=== PATIENT | female | born 1990 | race American Indian/Alaskan Native ===

== ENCOUNTER 2021-06-01 18:03 | Inpatient (IN) | payer MEDICAID, OTHER ==
[2021-06-01] MEDS ORDERED: LOPERAMIDE 2 MG CAP PO PRN (18:56)
[2021-06-01] MEDS ORDERED: miSOPROStol 200 MCG TAB PR PRN (18:56)
[2021-06-01] MEDS ORDERED: fentaNYL 100 MCG/2 ML INJ IV PRN (18:56)
[2021-06-01] MEDS ORDERED: OXYTOCIN 10 UNIT/1 ML INJ IM PRN (18:56)
[2021-06-01] MEDS ORDERED: METHYLERGONOVINE MALEATE 0.2 MG/ML VIAL IM PRN (18:56)
[2021-06-01] MEDS ORDERED: ONDANSETRON 4 MG/2 ML INJ IV PRN (18:56)
[2021-06-01] MEDS ORDERED: ePHEDrine SULFATE 50 MG/1 ML INJ IV PRN ×2 (18:56→19:48)
[2021-06-01] MEDS ORDERED: LIDOCAINE (2%) 20 MG/1 ML VIAL 20 ML MDV INFILTRATI ONE (18:56)
[2021-06-01] MEDS ORDERED: MINERAL OIL 30 ML ORAL LIQD PO PRN (18:56)
[2021-06-01] MEDS ORDERED: BUTORPHANOL 2 MG/1 ML INJ IV PRN (18:56)
[2021-06-01] MEDS ORDERED: TERBUTALINE 1 MG/1 ML INJ SUB-Q PRN (18:56)
[2021-06-01] MEDS ORDERED: PROMETHAZINE 25 MG TAB PO PRN (18:56)
[2021-06-01] MEDS ORDERED: CARBOPROST TROMETHAMINE 250 MCG/1 ML INJ IM PRN (18:56)
[2021-06-01] MEDS ORDERED: ACETAMINOPHEN 500 MG TAB PO PRN (18:56)
[2021-06-01] MEDS ORDERED: NALOXONE 0.4 MG/1 ML INJ IV PRN (18:56)
--- NOTE | 2021-06-01 18:56 | History and Physical Report ---
History of Present Illness Date of examination: 06/01/21 Date of admission: 06/01/2021 Chief complaint: I have been having contractions since 05/31/2021 and today they are getting stronger. History of present illness: EDC Confirmation: 06/10/2021 Gestational Age: 29 1/7 weeks Past History : 2 Term Births: 1 Premature Births: 0 Living Children: 1 Para: 1 Mult. Births: 0 Prev : 0 Prev. attempt? 0 Aborta: 0 Elect. Ab: 0 Spont. Ab: 0 Ectopics: 0 # 1 Delivery date: 07/05/2015 Weeks Gestation: 39 labor: no Delivery type: Vaginal Hours of labor: 3 hrs Anesthesia type: epidural Delivery location: [facility] Sex: male weight: 7.44 Comments: none Past Medical History: Reviewed history from 06/20/2019 and no changes required: Headaches(Migraines) Past Surgical History: Reviewed history from 06/20/2019 and no changes required: negative Past Medical History Anesthesia Complications: negative Anemia: negative Autoimmune Disorder: negative Bleeding Disorder: negative Blood Transfusions: negative Breast Disease: negative Diabetes: negative Heart Disease: negative Hypertension: negative Hepatitis/Liver Disease: negative Kidney Disease/UTI: negative Neurologic/Epilepsy/Migraines: negative Phlebitis/Varicosities: negative Psychiatric: negative Pulmonary Disease/Asthma: negative Thyroid Disease: negative Hospitalizations: negative Surgery (Non-communication center operator): negative Abnormal PAP: positive FREDERIC Exposure: negative Infertility: negative Uterine Anomaly: negative Uterine Surgery (not C/S): negative Other Gynecologic Problems: negative Social Hx: Patient is [place] Smoking History: Patient has never smoked. Infection History Hx of STD: none HIV Risk Eval: no Hepatitis B Risk Eval: low risk Personal hx. of genital herpes: yes Partner hx. of genital herpes: no Rash, Viral, or Febrile illness since last LMP? no Varicella/Chicken Pox Status: Previous Disease TB Risk: no Genetic History Congenital Heart Defect: Mom: no Dad: no Sharon Disease: Mom: no Dad: no Thalassemia Mom: no Dad: no Neural Tube Defect Mom: no Dad: no Down's Syndrome Mom: no Dad: no Kyle-Sachs Mom: no Dad: no Sickle Cell Disease/Trait Mom: no Dad: no Hemophilia Mom: no Dad: no Muscular Dystrophy Mom: no Dad: no Cystic Fibrosis Mom: no Dad: no [place] Chorea Mom: no Dad: no Mental Retardation Mom: no Dad: no Fragile X Mom: no Dad: no Other Genetic/Chromosomal Disorder Mom: no Dad: no Child w/other defect Mom: no Dad: no Enviromental Exposures Xray Exposure: no Medication, drug, or alcohol use since LMP: no Chemical/Other Exposure: no Exposure to Cat Liter: no Hx of Parvovirus (Fifth Disease): no Occupational Exposure to Children: none Active Medications (reviewed today): VALTREX 500 MG ORAL TABLET (VALACYCLOVIR HCL) one by mouth twice a day for 3 days Current Allergies (reviewed today): No known allergies Past History Past Medical History: migraines Past Surgical History: no surgical history Family/Genetic History: none Social history: no significant social history - Obstetrical History Expected Date of Delivery: 06/10/21 Actual Gestation: 38 Week(s) 5 Day(s) : 2 Para: 1 Hx # Term Pregnancies: 1 Number of Pregnancies: 0 Spontaneous Abortions: 0 Induced : 0 Number of Living Children: 1 Medications and Allergies Allergies Allergy/AdvReac Type Severity Reaction Status Date / Time No Known Allergies Allergy Verified 07/05/15 11:31 Home Medications Medication Instructions Recorded Confirmed Last Taken Type Lidocain2.5%/Prilocai2.5% [Emla] 1 applic TP ONCE #1 tube 07/05/15 Unknown Rx Review of Systems All systems: negative - Vital Signs Vital signs: Vital Signs Pulse Pulse Ox 83 100 06/01/21 18:34 06/01/21 18:34 Temp Pulse Resp BP Pulse Ox 98.2 F 95 H 18 108/61 99 06/01/21 18:48 06/01/21 18:49 06/01/21 18:48 06/01/21 18:48 06/01/21 18:49 - Physical Exam Breasts: Positive: deferred Cardiovascular: Regular rate Lungs: Positive: Normal air movement Abdomen: Positive: normal appearance, soft Genitourinary (Female): Positive: normal external genitalia, normal perenium, other (No HSV 2 lesions seen on exam) Vulva: both: normal Vagina: Positive: normal moisture Uterus: Positive: normal size (For gestation of 38.5 wks.) Extremities: Positive: normal - Obstetrical FHR: category 1 Uterine Contraction Monitor Mode: External Cervical Dilatation: 5 Cervical Effacement Percentage: 70 station: -2 Uterine Contraction Pattern: Irregular Uterine Tone Measurement Phase: Resting Uterine Contraction Intensity: Moderate Results Result Diagrams: 06/01/21 19:09 All other labs normal. GBS NEGATIVE A-, antibody screen negative Rubella IMMUNE Hep C negative Hep B negative HIV negative Syph IGG non-reactive Assessment and Plan A: 30 y.o. @ 38.5 wks in labor. Cervical exam /-2. Intact membranes. - Patient Problems (1) with 38 completed weeks gestation Current Visit: Yes Status: Acute Plan to address problem: Admit to labor and delivery. Start IV. Draw admission labs. Initiate IV bolus for epidural placement. Anticipate . (2) HSV-2 (herpes simplex virus 2) infection Current Visit: Yes Status: Acute Plan to address problem: No lesions seen on admission. Will continue to monitor.
[2021-06-01] MEDS ORDERED: OXYTOCIN DRIP 30 UNITS/500 ML BAG IV SCH ×2 (19:00)
[2021-06-01 19:27] LABS: Hematocrit 37.1 % (30.3-42.9); Hemoglobin 12.7 gm/dl (10.1-14.3); Mean Corpuscular HGB Conc 34 % (30-34); Mean Corpuscular Volume 93 fl (79-97); Platelet Count 206 K/mm3 (140-440); Red Blood Count 3.99 M/mm3 (3.65-5.03); Red Cell Distribution Width 14.6 % (13.2-15.2)
[2021-06-01] MEDS: LACTATED RINGERS 1,000 ML IV SCH ×3 (19:45→21:10)
[2021-06-01] MEDS ORDERED: NALOXONE 2 MG/2 ML INJ IV PRN (19:48)
--- NOTE | 2021-06-01 19:48 | Anesthesia Consultation ---
Anesthesia Consult and Med Hx Date of service: 06/01/21 - Airway Anesthetic Teeth Evaluation: Poor ROM Head & Neck: Adequate Mental/Hyoid Distance: Adequate Mallampati Class: Class II Intubation Access Assessment: Good - Pulmonary Exam CTA: Yes - Cardiac Exam Cardiac Exam: RRR - Pre-Operative Health Status ASA Pre-Surgery Classification: ASA2 Proposed Anesthetic Plan: Epidural - Pulmonary Hx Smoking: No Hx Asthma: No Hx Respiratory Symptoms: No SOB: No COPD: No Home Oxygen Therapy: No Hx Pneumonia: No Hx Sleep Apnea: No - Cardiovascular System Hx Hypertension: No Hx Coronary Artery Disease: No Hx Heart Attack/AMI: No Hx Angina: No Hx Percutaneous Transluminal Coronary Angioplasty (PTCA): No Hx Cardia Arrhythmia: No Hx Pacemaker: No Hx Internal Defibrillator: No Hx Valvular Heart Disease: No Hx Heart Murmur: No Hx Peripheral Vascular Disease: No - Central Nervous System Hx Neuromuscular Disorder: No Hx Seizures: No CVA: No Hx Back Pain: Yes Hx Psychiatric Problems: No - Gastrointestinal Hx Ulcer: No Hx Gastroesophageal Reflux Disease: Yes - Endocrine Hx Renal Disease: No Hx End Stage Renal Disease: No Hx Cirrhosis: No Hx Liver Disease: No Hx Insulin Dependent Diabetes: No Hx Non-Insulin Dependent Diabetes: No Hx Thyroid Disease: No Hx Hypothyroidism: No Hx Hyperthyroidism: No - Hematic Hx Anemia: No Hx Sickle Cell Disease: No - Other Systems Hx Alcohol Use: No Hx Substance Use: No Hx Cancer: No Hx Obesity: No
[2021-06-01] MEDS ORDERED: fentaNYL-BUPIV 2 MCG/ML-0.125% 200 MCG/100 ML BAG EPIDURAL SCH (20:00)
--- NOTE | 2021-06-01 20:59 | Progress Note ---
Labor Epidural - Labor Epidural Start Time: 20:40 Stop Time: 20:52 Performed by:: HARMONY TOSCANO Procedure: Patient is requesting a laboring epidural for laboring pain. Patient IDed, H&P reviewed, all questions and concerns were answered, and consent was signed. Timeout was performed at bedside. Patient in sitting position. Sterile prep and drape was performed. [3] ml of 1% lidocaine skin wheal at L[3]- L [4]. 18- gauge Rylan epidural needle was advanced to loss of resistance with saline technique 4cm. Negative CSF negative blood. Epidural catheter advanced to [10] centimeters. [NEGATIVE] Aspiration [NEGATIVE] test dose. Sterile dressing applied. Patient tolerated procedure.
[2021-06-01] MEDS ORDERED: valACYclovir 500 MG TAB PO SCH (21:00)
--- NOTE | 2021-06-01 22:19 | Progress Note ---
Assessment and Plan A: 30 y.o. @ 38.5 wks in active labor. Cervical exam: /0. Pronlonged deceleration noted. Now category 1 monitor strip. P: Continue with expectant labor management. Anticipate . - Patient Problems (1) with 38 completed weeks gestation Current Visit: Yes Status: Acute (2) HSV-2 (herpes simplex virus 2) infection Current Visit: Yes Status: Acute Subjective - Subjective Date of service: 06/01/21 (Pt comfortable with epidural) Principal diagnosis: IUP @ 38.5, active labor Patient reports: other (Somne vaginal pressure) Objective - Vital Signs Vital Signs: Vital Signs - 12hr 06/01/21 06/01/21 06/01/21 18:34 18:35 18:39 Temperature Pulse Rate 83 80 98 H Respiratory Rate Blood Pressure 108/61 Blood Pressure [Right] O2 Sat by Pulse 100 100 Oximetry 06/01/21 06/01/21 06/01/21 18:44 18:48 18:49 Temperature 98.2 F Pulse Rate 102 H 96 H 95 H Respiratory 18 Rate Blood Pressure Blood Pressure 108/61 [Right] O2 Sat by Pulse 99 99 99 Oximetry 06/01/21 06/01/21 06/01/21 18:54 18:59 19:04 Temperature Pulse Rate 98 H 100 H 96 H Respiratory Rate Blood Pressure Blood Pressure [Right] O2 Sat by Pulse 100 99 99 Oximetry 06/01/21 06/01/21 06/01/21 19:09 19:14 19:42 Temperature Pulse Rate 88 94 H 87 Respiratory Rate Blood Pressure 114/66 Blood Pressure [Right] O2 Sat by Pulse 100 99 89 Oximetry 06/01/21 06/01/21 06/01/21 19:47 19:52 19:57 Temperature Pulse Rate 93 H 91 H 93 H Respiratory Rate Blood Pressure Blood Pressure [Right] O2 Sat by Pulse 100 100 100 Oximetry 06/01/21 06/01/21 06/01/21 20:02 20:07 20:12 Temperature 98.3 F Pulse Rate 95 H 88 94 H Respiratory 18 Rate Blood Pressure Blood Pressure [Right] O2 Sat by Pulse 99 100 100 Oximetry 06/01/21 06/01/21 06/01/21 20:17 20:29 20:34 Temperature Pulse Rate 93 H 87 88 Respiratory Rate Blood Pressure Blood Pressure [Right] O2 Sat by Pulse 100 99 100 Oximetry 06/01/21 06/01/21 06/01/21 20:38 20:39 20:44 Temperature Pulse Rate 96 H 94 H 95 H Respiratory Rate Blood Pressure Blood Pressure [Right] O2 Sat by Pulse 91 100 100 Oximetry 06/01/21 06/01/21 06/01/21 20:49 20:51 20:53 Temperature Pulse Rate 100 H 89 76 Respiratory Rate Blood Pressure 102/57 102/57 Blood Pressure [Right] O2 Sat by Pulse 99 Oximetry 06/01/21 06/01/21 06/01/21 20:54 20:55 20:57 Temperature Pulse Rate 77 72 88 Respiratory Rate Blood Pressure 106/61 104/65 Blood Pressure [Right] O2 Sat by Pulse 99 Oximetry 06/01/21 06/01/21 06/01/21 20:59 21:01 21:03 Temperature Pulse Rate 76 83 83 Respiratory Rate Blood Pressure 109/62 108/64 104/61 Blood Pressure [Right] O2 Sat by Pulse 99 Oximetry 06/01/21 06/01/21 06/01/21 21:04 21:05 21:07 Temperature Pulse Rate 86 85 82 Respiratory Rate Blood Pressure 109/69 116/67 Blood Pressure [Right] O2 Sat by Pulse 99 Oximetry 06/01/21 06/01/21 06/01/21 21:09 21:11 21:14 Temperature Pulse Rate 86 81 82 Respiratory Rate Blood Pressure 112/70 107/59 Blood Pressure [Right] O2 Sat by Pulse 99 98 Oximetry 06/01/21 06/01/21 06/01/21 21:19 21:23 21:24 Temperature Pulse Rate 90 85 85 Respiratory Rate Blood Pressure 106/62 Blood Pressure [Right] O2 Sat by Pulse 99 99 Oximetry 06/01/21 06/01/21 06/01/21 21:29 21:32 21:34 Temperature Pulse Rate 85 78 77 Respiratory Rate Blood Pressure 109/56 Blood Pressure [Right] O2 Sat by Pulse 99 98 Oximetry 06/01/21 06/01/21 06/01/21 21:39 21:44 21:49 Temperature Pulse Rate 94 H 82 73 Respiratory Rate Blood Pressure Blood Pressure [Right] O2 Sat by Pulse 100 99 100 Oximetry 06/01/21 06/01/21 06/01/21 21:54 22:02 22:08 Temperature Pulse Rate 105 H 96 H 74 Respiratory Rate Blood Pressure 106/66 Blood Pressure [Right] O2 Sat by Pulse 99 100 Oximetry - Exam Narrative Exam: Was called by RN d/t a prolonged deceleration that had been going on for about 6 minutes. She was repositioned on her hands and knees, Pitocin was turned off, and O2 via face mask applied. Upon entering the room, the FHR had returned to baseline and was category 1. Cervical exam: 890/0. Explained to patient that the deceleration could have been d/t rapid descent of her baby's head. She was previously -2 station. We will continue to monitor her progress in labor and her baby's tolerance to labor. Pt agrees to this plan and verbalized understanding. Breasts: deferred Cardiovascular: Regular rate Lungs: Normal air movement Abdomen: Present: normal appearance, soft Vulva: both: normal FHR: category 2 (prolonged deceleration noted into the 90's.) Uterine Contraction Monitor Mode: External Cervical Dilatation: 8 Cervical Effacement Percentage: 90 station: 0 Uterine Contraction Pattern: Regular Uterine Tone Measurement Phase: Resting Uterine Contraction Intensity: Moderate Extremities: normal - Labs Labs: Laboratory Results - last 24 hr 06/01/21 06/01/21 06/01/21 19:09 19:09 19:09 WBC 6.6 RBC 3.99 Hgb 12.7 Hct 37.1 MCV 93 MCH 32 MCHC 34 RDW 14.6 Plt Count 206 Syphilis IgG Antibody Nonreactive Blood Type A NEGATIVE Antibody Screen Positive Antibody Identification Anti-D (Passively Aquired)
[2021-06-02] MEDS ORDERED: ACETAMINOPHEN 325 MG TAB PO PRN (00:56)
[2021-06-02] MEDS ORDERED: miSOPROStol 100 MCG TAB PR PRN (00:56)
[2021-06-02] MEDS ORDERED: ONDANSETRON 4 MG/2 ML INJ IV PRN (00:56)
[2021-06-02] MEDS ORDERED: WITCH HAZEL/ GLYCERIN PAD TP PRN (00:56)
[2021-06-02] MEDS ORDERED: LANOLIN/ZINC/DIMETHICONE (LANSINOH) 7 GM TP PRN ×2 (00:56)
[2021-06-02] MEDS ORDERED: MAGNESIUM HYDROXIDE (MOM) ORAL LIQD UDC PO PRN (00:56)
[2021-06-02] MEDS ORDERED: BENZOCAINE/MENTHOL 20/0.5% TOP SPRAY 56 GM TP PRN (00:56)
[2021-06-02] MEDS ORDERED: diphenhydrAMINE 25 MG CAP PO PRN (00:56)
[2021-06-02] MEDS ORDERED: PROMETHAZINE 25 MG TAB PO PRN (00:56)
[2021-06-02] MEDS ORDERED: oxyCODONE /ACETAMINOPHEN 5-325MG TAB PO PRN (00:56)
[2021-06-02] MEDS ORDERED: OXYTOCIN DRIP 30 UNITS/500 ML BAG IV SCH (01:00)
--- NOTE | 2021-06-02 01:06 | Procedure Note ---
OB Delivery Note - Delivery Date of Delivery: 06/01/21 (Pt delivered on 06/01 @ 2351 PM) Air Brake Rigger: MIKE CAMPOS Estimated blood loss: 200cc - Vaginal Delivery presentation: vertex Delivery position: OA Intrapartum events: none Delivery induction: none Delivery monitor: external FHT, external uterine Delivery placenta: spontaneous Delivery cord: 3 umbilical vessels Episiotomy: none Delivery laceration: 2nd degree Delivery repair: vicryl Anesthesia: epidural Delivery comments: of viable female . to mother's abdomen for skin to skin. Cord cut and clamped by FOC after cessation of pulse. Spontaneous delivery of placenta, intact, complete, 3 vessels noted. Perineum and vagina inspected, 2nd degree laceration noted. Repaired with 3-0 Vicryl. Fundus firm, minimal bleeding noted. Apgars 8,9. Infant weight 7-11. EBL 200ml. Infant and mother left in stable condition in care of RN. Instruments and sponges counted X2 with RN and correct X2.
[2021-06-02] MEDS: IBUPROFEN 800 MG TAB PO SCH ×4 (03:15→22:25)
[2021-06-02] MEDS: DOCUSATE SODIUM 100 MG CAP PO SCH ×2 (09:49→22:25)
[2021-06-02] MEDS ORDERED: PRENATAL VIT27-FE FUMARATE-FOLIC ACID VIT TAB PO SCH (10:00)
--- NOTE | 2021-06-02 11:50 | Progress Note ---
Assessment and Plan Pt sitting in bed with supportive family members at bedside holding infant. Pt reports well exclusively, eating, ambulating, voiding, and had first bowel movement since delivery without complaints. POC d/w pt for possible discharge tomorrow. Pt reports desires for paraguard IUD placement in office for PP BC. All questions and concerns addressed. - Patient Problems (1) Rh negative, delivered, current hospitalization Current Visit: Yes Status: Acute (2) Spontaneous vaginal delivery Current Visit: Yes Status: Acute Subjective - Subjective Date of service: 06/02/21 Principal diagnosis: s/p Patient reports: appetite normal, voiding normally, pain well controlled, flatus, bowel movement, ambulating normally [place]: doing well, nursing well Objective - Vital Signs Latest vital signs: Vital Signs Temp Pulse Resp BP BP BP Pulse Ox 06/02/21 08:35 98.0 F 82 18 98/63 99 06/02/21 06:55 16 06/02/21 03:15 18 06/02/21 03:06 98.3 F 78 101/55 06/02/21 01:48 80 99 06/02/21 01:46 76 115/65 06/02/21 01:43 85 99 06/02/21 01:38 84 99 06/02/21 01:33 77 100 06/02/21 01:31 80 107/61 06/02/21 01:28 81 98 06/02/21 01:23 81 99 06/02/21 01:18 84 98 06/02/21 01:16 77 104/59 93 06/02/21 01:13 78 99 06/02/21 01:08 74 97 06/02/21 01:03 80 98 06/02/21 01:02 78 100/55 06/02/21 00:58 74 100 06/02/21 00:53 82 97 06/02/21 00:51 85 93 06/02/21 00:48 79 98 06/02/21 00:47 71 106/57 06/02/21 00:43 79 98 06/02/21 00:38 85 99 06/02/21 00:33 79 99 06/02/21 00:32 80 104/59 06/02/21 00:28 84 99 06/02/21 00:23 93 H 99 06/02/21 00:18 80 98 06/02/21 00:17 77 112/62 06/02/21 00:13 82 99 06/02/21 00:08 88 98 06/02/21 00:03 78 99 06/01/21 23:58 84 98 06/01/21 23:53 94 H 98 06/01/21 23:48 94 H 98 06/01/21 23:43 103 H 87 06/01/21 23:38 86 99 06/01/21 23:35 29 L 90 06/01/21 23:33 72 106/65 93 06/01/21 23:29 82 87 06/01/21 23:28 74 100 06/01/21 23:23 78 100 06/01/21 23:18 72 100 06/01/21 23:13 78 98 06/01/21 23:08 72 99 06/01/21 23:03 72 97 06/01/21 23:02 69 101/55 06/01/21 23:00 83 94 06/01/21 22:58 70 99 06/01/21 22:53 72 92 06/01/21 22:51 75 88 06/01/21 22:48 80 99 06/01/21 22:43 76 99 06/01/21 22:38 85 100 06/01/21 22:33 78 105/62 100 06/01/21 22:28 84 99 06/01/21 22:23 78 100 06/01/21 22:18 82 99 06/01/21 22:13 83 99 06/01/21 22:08 74 100 06/01/21 22:02 96 H 106/66 06/01/21 21:54 105 H 99 06/01/21 21:49 73 100 06/01/21 21:44 82 99 06/01/21 21:39 94 H 100 06/01/21 21:34 77 98 06/01/21 21:32 78 109/56 06/01/21 21:29 85 99 06/01/21 21:24 85 99 06/01/21 21:23 85 106/62 06/01/21 21:19 90 99 06/01/21 21:14 82 98 06/01/21 21:11 81 107/59 06/01/21 21:09 86 112/70 99 06/01/21 21:07 82 116/67 06/01/21 21:05 85 109/69 06/01/21 21:04 86 99 06/01/21 21:03 83 104/61 06/01/21 21:01 83 108/64 06/01/21 20:59 76 109/62 99 06/01/21 20:57 88 104/65 06/01/21 20:55 72 106/61 06/01/21 20:54 77 99 06/01/21 20:53 76 102/57 06/01/21 20:51 89 102/57 06/01/21 20:49 100 H 99 06/01/21 20:44 95 H 100 06/01/21 20:39 94 H 100 06/01/21 20:38 96 H 91 06/01/21 20:34 88 100 06/01/21 20:29 87 99 06/01/21 20:17 93 H 100 06/01/21 20:12 94 H 100 06/01/21 20:07 88 100 06/01/21 20:02 98.3 F 95 H 18 99 06/01/21 19:57 93 H 100 06/01/21 19:52 91 H 100 06/01/21 19:47 93 H 100 06/01/21 19:42 87 114/66 89 06/01/21 19:14 94 H 99 06/01/21 19:09 88 100 06/01/21 19:04 96 H 99 06/01/21 18:59 100 H 99 06/01/21 18:54 98 H 100 06/01/21 18:49 95 H 99 06/01/21 18:48 98.2 F 96 H 18 108/61 99 06/01/21 18:44 102 H 99 06/01/21 18:39 98 H 100 06/01/21 18:35 80 108/61 06/01/21 18:34 83 100 Intake and Output 06/01/21 06/02/21 06/02/21 23:59 07:59 15:59 Intake Total 1701.067 Output Total 666 733 300 Balance 1035.069 -733 -300 Intake: IV 1701.067 Lactated Ringers 1,000 ml 1700 @ 125 mls/hr IV DIRECT DONNA Rx#:[id number] PITOCin/NS 30 UNIT/500ML 1.067 30 units In 500 ml @ 4 mls/hr IV TITR DONNA Rx#: [id number] Output: Urine 666 733 300 Indwelling Catheter 666 333 Self-Catheterization 400 Void 300 Other: Total, Output Amount 333 400 300 # Voids Void 1 Weight 149 lb Estimated Blood Loss 200 - Exam Breasts: Present: normal Cardiovascular: Present: Regular rate Lungs: Present: Normal air movement Abdomen: Present: normal appearance, soft Vulva: both: normal Uterus: Present: normal, firm Extremities: Present: normal
[2021-06-02 13:04] LABS: Hematocrit 37.2 % (30.3-42.9); Hemoglobin 12.7 gm/dl (10.1-14.3)
--- NOTE | 2021-06-02 15:04 | Post Anesthesia Evaluation ---
- Post Anesthesia Evaluation Patient Participated: Yes Airway Patent: Yes Stable Respiratory Function: Yes Nausea/Vomiting: No Temp > 96.8F: Yes Pain Manageable: Yes Adequeate Hydration: Yes Anesthesia Complications: No Block Receding Appropriately: Yes Patient on Ventilator: No
[2021-06-03] MEDS ORDERED: MEASLES, MUMPS & RUBELLA 12,500 UNIT/0.5 ML VACCINE SUB-Q ONE (06:00)
[2021-06-03] MEDS: IBUPROFEN 800 MG TAB PO SCH (06:35)
--- NOTE | 2021-06-03 07:25 | Discharge Summary ---
Providers - Providers Date of Admission: 06/01/21 18:56 Date of discharge: 06/03/21 (pt desires d/c) Attending physician: CRIS JUARES 06/02/21 00:57 Consult to Chemical Process Analyst [CONS] Routine Reason For Exam: assistance with , SNS Primary care physician: CRIS JUARES Hospitalization Reason for admission: active labor Delivery: Episiotomy: none Laceration: none Incision: normal Other procedures: none complications: none Discharge diagnosis: IUP at term delivered baby: female Hospital course: uncomplicated vaginal delivery Pt awake caring for NB. Pt c/o back pain. Relieving factors given Encouraged to use Motrin. VSS FF below umb Lochia scant Perineum intact. H&H stable No s/sx of anemia. Doing well s/p vag delivery. P: d/c today with instructions RTO 4 w PP care. Condition at discharge: Good Disposition: DC-01 TO HOME OR SELFCARE - Discharge Diagnoses (1) Normal spontaneous vaginal delivery Status: Acute Comment: rto 4 weeks PP care Plan - Discharge Medications Prescriptions: Ibuprofen [Motrin] 800 mg PO Q8HR PRN #30 tablet PRN Reason: Pain, Moderate (4-6) - Provider Discharge Summary Activity: routine, no sex for 6 weeks, no heavy lifting 4 weeks, no strenuous exercise Diet: routine Instructions: routine Additional instructions: [] Smoking cessation referral if applicable(refer to patient education folder for contact #) [] Refer to [facility]'s [facility] Booklet Call your doctor immediately for: * Fever > 100.5 * Heavy vaginal bleeding ( >1 pad per hour) * Severe persistent headache * Shortness of breath * Reddened, hot, painful area to leg or breast * Drainage or odor from incision. * Keep incision clean and dry at all times and follow doctor's instructions regarding bathing/showering - Follow up plan Follow up: CRIS JUARES MD [Primary Care Provider] - 07/02/21 (Congratulations! Please call [phone] to schedule your visit in 4 weeks. Take medication as instructed. Call with any concerns.)
[2021-06-03 13:32] VITALS: BP 111/68
== END 2021-06-03 15:30 | disposition home or self-care (01) | DRG 807 ==
LOC: TRG 18:03 → APU 18:06 → TRG 18:56 → LD 18:56 → OB 06-02 02:36
PROVIDERS: ADMIT Obstetrics & Gynecology; ATTEND Obstetrics & Gynecology
PROC: 10E0XZZ Delivery of Products of Conception, External Approach (ICD-10-PCS; principal; 2021-06-01)
PROC: 0KQM0ZZ Repair Perineum Muscle, Open Approach (ICD-10-PCS; 2021-06-01)
PROC: 3E0R3BZ Introduction of Anesthetic Agent into Spinal Canal, Percutaneous Approach (ICD-10-PCS; 2021-06-01)
PROC: 00HU33Z Insertion of Infusion Device into Spinal Canal, Percutaneous Approach (ICD-10-PCS; 2021-06-01)
DX: O98.32 Other infections with a predominantly sexual mode of transmission complicating childbirth (principal); Z37.0 Single live birth; Z3A.39 39 weeks gestation of pregnancy; Z20.822 Contact with and (suspected) exposure to COVID-19; O70.1 Second degree perineal laceration during delivery; A60.00 Herpesviral infection of urogenital system, unspecified
CPT/HCPCS: 36415; 59025; 85014; 85018; 85027; 85461; 86592; 86850; 86870; 86900; 86901; 99211; G0378; G0463; J2590; J2790; J7120; U0003